=== PATIENT | female | born 1975 | race Caucasian/White ===

== ENCOUNTER 2018-08-09 14:20 | Emergency (ER) | payer OTHER ==
--- NOTE | 2018-08-09 14:48 | EDM.PDOC ---
ED HPI GENERAL MEDICAL PROBLEM - General Chief Complaint: Abdominal Pain Stated Complaint: abdominal pain Time Seen by Provider: 08/09/18 14:40 Source of Information: Reports: Patient History Limitations: Reports: No Limitations - History of Present Illness INITIAL COMMENTS - FREE TEXT/NARRATIVE: This is a 43yo F here for left sided abdominal pain and discomfort. Patient denies prior abdominal issues. She denies fever or chills. She states the pain started just a day ago and has worsened. She is about a 6/10 pain. She denies fluctuations but does state that with meals she does have loose stools. She denies any hematochezia or melena. No vomiting but has nausea and loss of appetite. Onset: Gradual Onset Date: 07/28/18 Duration: Day(s):, Week(s): Location: Reports: Abdomen Quality: Reports: Ache Severity: Moderate Improves with: Reports: None Worsens with: Reports: Eating Associated Symptoms: Reports: No Other Symptoms - Related Data Allergies Allergy/AdvReac Type Severity Reaction Status Date / Time Sulfa (Sulfonamide Allergy Hives Verified 08/09/18 15:03 Antibiotics) Home Meds: Home Meds Linaclotide [Linzess] 72 mcg PO DAILY 08/09/18 [History] ED ROS GENERAL - Review of Systems Review Of Systems: ROS reveals no pertinent complaints other than HPI. ED EXAM, GI/ABD - Physical Exam Exam: See Below Exam Limited By: No Limitations General Appearance: Alert, WD/WN, Mild Distress Eyes: Bilateral: EOMI, Erythema Ears: Normal External Exam Nose: Normal Inspection Throat/Mouth: Normal Inspection Head: Atraumatic, Normocephalic Neck: Normal Inspection, Supple, Non-Tender Respiratory/Chest: No Respiratory Distress, Lungs Clear Cardiovascular: Normal Peripheral Pulses, Regular Rate, Rhythm GI/Abdominal Exam: Soft, Tender, Abnormal Bowel Sounds (hyperactive bowel) Back Exam: Normal Inspection Extremities: Normal Inspection Course - Orders/Labs/Meds Labs: Laboratory Tests 08/09/18 08/09/18 08/09/18 Range/Units 14:50 14:50 14:50 WBC 6.8 (4.0-11.0) K/uL RBC 4.70 (3.80-5.80) M/uL Hgb 15.0 (11.5-16.5) g/dL Hct 42.5 (37.0-47.0) % MCV 90 (76-96) fL MCH 31.9 (27.0-32.0) pg MCHC 35.3 H (31.0-35.0) g/dL RDW 12.3 (11.0-16.0) % Plt Count 311 (150-500) K/uL MPV 8.7 (6.0-10.0) fL Neut % (Auto) 62.3 (45.0-70.0) % Lymph % (Auto) 29.2 (20.0-40.0) % [place] % (Auto) 8.0 (3.0-10.0) % Eos % (Auto) 0.4 L (1.0-5.0) % Baso % (Auto) 0.1 (0.0-0.5) % Neut # (Auto) 4.23 (2.00-7.50) K/uL Lymph # (Auto) 1.98 (1.50-4.00) K/uL [place] # (Auto) 0.54 (0.20-0.80) K/uL Eos # (Auto) 0.03 L (0.04-0.40) K/uL Baso # (Auto) 0.01 L (0.02-0.10) K/uL Sodium 144 (136-145) mmol/L Potassium 3.7 (3.5-5.1) mmol/L Chloride 105 (98-107) mmol/L Carbon Dioxide 27.4 (21.0-32.0) mmol/L Anion Gap 15.3 H (5.0-15.0) mmol/L BUN 16 (8-26) mg/dL Creatinine 0.85 (0.55-1.02) mg/dL Est Cr Clr Drug Dosing TNP Estimated GFR (MDRD) > 60 (>60) MLS/MIN BUN/Creatinine Ratio 18.8 (6-25) Glucose 88 (74-100) mg/dL Lactic Acid 0.72 L (0.90-1.70) mmol/L Calcium 9.3 (8.5-10.1) mg/dL Total Bilirubin 0.5 (0.0-1.0) mg/dL AST 16 (15-37) U/L ALT 20 (12-78) U/L Alkaline Phosphatase 63 (46-116) U/L Total Protein 7.2 (6.4-8.2) g/dL Albumin 4.2 (3.4-5.0) g/dL Globulin 3.0 (2.2-4.2) g/dL Albumin/Globulin Ratio 1.4 (0.8-2.0) Lipase 105 (73-393) U/L Departure - Departure Time of Disposition: 15:45 Disposition: Home, Self-Care 01 Condition: Fair Clinical Impression: Colitis - Discharge Information Instructions: Colitis Referrals: PCP,None [Primary Care Provider] - Forms: ED Department Discharge, ED Return to Work/School Form Additional Instructions: Take Cipro 500mg twice a day for 10 days. Take Flagly 500mg 3 times a day for 10 days. Increase fluids as tolerated. Return to clinic or ER if symptoms do not improve or get worse. - Problem List & Annotations (1) Colitis SNOMED Code(s): 51344057 Code(s): K52.9 - NONINFECTIVE GASTROENTERITIS AND COLITIS, UNSPECIFIED Status: Acute - Problem List Review Problem List Initiated/Reviewed/Updated: Yes - Assessment/Plan Plan: Counseled on CT results. Discussed management plan of care and close monitoring and f/u if any further symptoms. Discussed antibiotics treatment and side effects and risks for C. diff. Discussed rtc or ER if any worsening symptoms or persistent symptoms. Discussed follow up in clinic as routine post ER visit. Patient agrees with follow up and plan of care.
--- NOTE | 2018-08-09 15:43 | CT ---
DATE OF SERVICE: 08/09/2018 CLINICAL DATA: Abdominal Pain Unenhanced abdomen and pelvic CT: Multislice acquisition through the abdomen and pelvis without IV or oral contrast was performed. No priors. There are bilateral breast implants. The lung bases are clear. The heart size is normal. The unenhanced liver appears normal. The gallbladder appears normal. No calcified gallstones. The spleen appears normal. The pancreas appears normal. The right and left adrenals appear normal. The right and left kidneys appear normal. No nephrocalcinosis or nephrolithiasis. No hydronephrosis or hydroureter. The bladder is partially fluid-filled. It appears grossly normal. There is mild mural thickening within the fundus and body of the stomach. This is probably related to nondistention. Gastritis should be considered. There is a surgical clip adjacent to the cecum most likely related to prior appendectomy. The appendix is not visualized. There is mild diverticulosis of the ascending and transverse colon. No evidence of diverticulitis. There is mild mural thickening within the ascending and transverse colon. This is probably related to nondistention. Colitis should be considered. No free air. No free fluid. No dilated loops of bowel. No adenopathy. No aortic aneurysm. There is a small umbilical hernia containing fat. MTDD
== END 2018-08-09 15:42 | disposition home or self-care (01) ==
LOC: LB.ED 14:20
DX: K52.9 Noninfective gastroenteritis and colitis, unspecified (principal); Z79.899 Other long term (current) drug therapy; Z88.2 Allergy status to sulfonamides
CPT/HCPCS: 36415; 74176; 80053; 83605; 83690; 85025; 99284-25

== ENCOUNTER 2018-08-21 18:40 | Emergency (ER) | payer OTHER ==
--- NOTE | 2018-08-21 19:42 | EDM.PDOC ---
ED HPI GENERAL MEDICAL PROBLEM - General Chief Complaint: Gastrointestinal Problem Stated Complaint: DIVERTICULITIS NOT BETTER Time Seen by Provider: 08/21/18 19:15 Source of Information: Reports: Patient History Limitations: Reports: No Limitations - History of Present Illness INITIAL COMMENTS - FREE TEXT/NARRATIVE: According to patient , she claims that she has been having abdominal pain for past 2 wks now. Pain is all over the abdomen. No abdominal distension. Has been having loose stools. She claims everything she eats just comes out. Stools are loose, no blood or mucus. No abdominal cramping, more of a constant dull ache. Rates her pain around 6/10. No fever or chills. No nausea or vomiting. No abdominal bloating. She claims her diarrhea is not a problem, that is okay because she is constipated most of the time, but she wants her pain fixed before she leaves for [place] in 3 days. Apparently pt did say she was seen in the emergency room 2 wks ago. She was given 2 different antibiotics for 10 days and her abdomen pain or her diarrhea is not resolved. Duration: Week(s): (2 wks) Location: Reports: Abdomen Quality: Reports: Ache Severity: Moderate Improves with: Reports: None Worsens with: Reports: None Associated Symptoms: Denies: Confusion, Chest Pain, Cough, Diaphoresis, Fever/ Chills, Nausea/Vomiting, Rash, Seizure, Shortness of Breath, Syncope, Weakness - Related Data Allergies Allergy/AdvReac Type Severity Reaction Status Date / Time Sulfa (Sulfonamide Allergy Hives Verified 08/21/18 19:14 Antibiotics) Home Meds: Home Meds Linaclotide [Linzess] 72 mcg PO DAILY 08/09/18 [History] ED ROS GENERAL - Review of Systems Review Of Systems: See Below Constitutional: Denies: Fever, Chills HEENT: Denies: Rhinitis, Throat Pain, Throat Swelling Respiratory: Denies: Shortness of Breath, Wheezing, Pleuritic Chest Pain, Cough , Sputum Cardiovascular: Denies: Chest Pain, Lightheadedness GI/Abdominal: Reports: Abdominal Pain, Diarrhea, Flatus. Denies: Distension, Nausea, Vomiting : Denies: Flank Pain, Frequency Musculoskeletal: Denies: Joint Pain, Joint Swelling Skin: Denies: Bruising, Pruritis, Rash ED EXAM, GENERAL - Physical Exam Exam: See Below Exam Limited By: No Limitations General Appearance: Alert, WD/WN, No Apparent Distress Eye Exam: Bilateral Eye: EOMI, PERRL Ears: Normal External Exam, Normal Canal, Hearing Grossly Normal, Normal TMs Ear Exam: Bilateral Ear: Auricle Normal, Canal Normal, TM normal Nose: Normal Inspection, Normal Mucosa, No Blood Throat/Mouth: Normal Inspection, Normal Lips, Normal Teeth, Normal Gums, Normal Oropharynx, Normal Voice, No Airway Compromise Head: Atraumatic, Normocephalic Neck: Normal Inspection, Supple, Non-Tender, Full Range of Motion Respiratory/Chest: No Respiratory Distress, Lungs Clear, Normal Breath Sounds, No Accessory Muscle Use, Chest Non-Tender Cardiovascular: Normal Peripheral Pulses, Regular Rate, Rhythm, No Edema, No Gallop, No JVD, No Murmur, No Rub GI/Abdominal: Normal Bowel Sounds, Soft, No Organomegaly, Tender (Pt has superficial tenderness in all four quadrants. no rebound tenderness.). No: Guarding, Rigid, Rebound Course - Vital Signs Text/Narrative:: Pt's vitals are stable and clinical exam is normal other then her superficial abdominal pain. Her main symptoms is abdominal pain with diarrhea. I did review her medical records from 08/09/18. Pt's CBC was normal. Her BMP was stable. Also she had CT abdomen done which showed possible colitis. She was treated with 10 days of Cipro and Flagyl. Pt's abdominal pain is not better. At this point her abdominal pain and diarrhea needs to be worked up further to make sure if this is inflammatory colitis or infective colitis or noninfective colitis ( IBS) . I do not think there is no need to repeat CT abdomen again as there are no signs of acute abdomen. I did reassured patient that I might need to repeat the cbc, BMP. Also if she could give stool sample for stool culture and stool C-diff (considering that she has been on 10 days of antibiotics). And also might need Upper and lower GI scope done to make sure she is not having inflammatory colitis . Pt is upset, gets tearful" I just need my abdominal pain fixed.". I clearly told patient most of the workup will take few days. the only thing I can really get done today will be CBC and BMP and if she can give stool , can get stool C- diff. I told patient she could have followed up in clinic for workup instead of suffering for 2 wks. Considering her Cruise travel in the next few days coming up , I did reassure patient that she could take loperamide to stop the diarrhea as needed. But she claims diarrhea is not the problem , her abdominal pain is.Pt got upset , and said if you really cannot fix the pain there is no need to have further workup. Pt was told that if she leaves the emergency room she has to leave against medical advised. She agreed to sign.Pt signed MA papers and left. Departure - Departure Time of Disposition: 19:50 Disposition: Against Medical Advice 07 Clinical Impression: Abdominal pain - Discharge Information Forms: ED Department Discharge - Problem List & Annotations (1) Abdominal pain SNOMED Code(s): 38657185 Code(s): R10.9 - UNSPECIFIED ABDOMINAL PAIN Status: Acute - Problem List Review Problem List Initiated/Reviewed/Updated: Yes - Assessment/Plan Assessment:: abdominal pain with diarrhea. Plan: Pt's vitals are stable and clinical exam is normal other then her superficial abdominal pain. Her main symptoms is abdominal pain with diarrhea. I did review her medical records from 08/09/18. Pt's CBC was normal. Her BMP was stable. Also she had CT abdomen done which showed possible colitis. She was treated with 10 days of Cipro and Flagyl. Pt's abdominal pain is not better. At this point her abdominal pain and diarrhea needs to be worked up further to make sure if this is inflammatory colitis or infective colitis or noninfective colitis ( IBS) . I do not think there is no need to repeat CT abdomen again as there are no signs of acute abdomen. I did reassured patient that I might need to repeat the cbc, BMP. Also if she could give stool sample for stool culture and stool C-diff (considering that she has been on 10 days of antibiotics). And also might need Upper and lower GI scope done to make sure she is not having inflammatory colitis . Pt is upset, gets tearful" I just need my abdominal pain fixed.". I clearly told patient most of the workup will take few days. the only thing I can really get done today will be CBC and BMP and if she can give stool , can get stool C- diff. I told patient she could have followed up in clinic for workup instead of suffering for 2 wks. Considering her [employer] travel in the next few days coming up , I did reassure patient that she could take loperamide to stop the diarrhea as needed. But she claims diarrhea is not the problem , her abdominal pain is.Pt got upset , and said if you really cannot fix the pain there is no need to have further workup. Pt was told that if she leaves the emergency room she has to leave against medical advised. She agreed to sign.Pt signed MA papers and left.
== END 2018-08-21 19:35 | disposition left against medical advice (07) ==
LOC: LB.ED 18:40
DX: R19.7 Diarrhea, unspecified (principal); R10.9 Unspecified abdominal pain; Z88.2 Allergy status to sulfonamides
CPT/HCPCS: 99283